=== PATIENT | female | born 1960 | race African-American/Black ===

== ENCOUNTER 2021-01-29 16:30 | Emergency (ER) | payer MEDICAID ==
[~2021-01-29] VITALS: Ht 160 cm; Wt 76.0 kg
[2021-01-29 16:54] VITALS: BP 170/86
[2021-01-29] MEDS ORDERED: GABA100C MT (17:52)
[2021-01-29] MEDS ORDERED: GABAPENTIN 300MG CAPSULE PO ONE (18:00)
== END 2021-01-29 18:19 | disposition home or self-care (01) ==
LOC: ER 16:30
DX: G62.9 Polyneuropathy, unspecified (principal); I25.10 Atherosclerotic heart disease of native coronary artery without angina pectoris; Z88.0 Allergy status to penicillin; Z85.9 Personal history of malignant neoplasm, unspecified; Z98.890 Other specified postprocedural states
CPT/HCPCS: 29125; 99283